=== PATIENT | male | born 1965 | race African-American/Black ===

== ENCOUNTER 2021-10-21 07:22 | Outpatient (REF) | payer OTHER, SELFPAY | END 2021-10-21 07:23 | disposition home or self-care (01) | LOC: HO.HOSX 07:22 | PROVIDERS: Visit Provider Physician Assistant | DX: Z13.89 Encounter for screening for other disorder (principal) ==

== ENCOUNTER → 2022-11-30 11:31 | Outpatient (BNVA) | payer MEDICAID, SELFPAY | PROVIDERS: PCP Nurse Practitioner Adult Health; Visit Provider Internal Medicine Gastroenterology | DX: K59.09 Other constipation (principal); K58.9 Irritable bowel syndrome, unspecified; R10.10 Upper abdominal pain, unspecified | CPT/HCPCS: 99202 ==

== ENCOUNTER 2023-03-09 08:00 | Day surgery (SDC) | payer OTHER, SELFPAY ==
[2022-12-12 12:53] VITALS: BMI 29.5
--- NOTE | 2023-03-08 08:51 | HO.ANESPROP2 ---
Documented by User: Kita Hernandez NP 03/08/23 08:51 HPI - Anesthesia Eval Consult details Narrative: 57yo M for Upper Endoscopy and Colonoscopy [facility] Active Problems Active Problems: All Active Problems (Updated 12/11/22 @ 15:51 by Demi Gonzalez, RN) Swelling of left hand (Acute ~03/27/21) Dermatitis (Acute) Upper abdominal pain (Acute) Chronic constipation (Acute) IBS (irritable bowel syndrome) (Acute) Past Medical History Medical History IBS (irritable bowel syndrome) Surgical History Surgical History H/O colonoscopy Social History Social History Patient Tobacco Use Status: Current everyday Tobacco user Substance Use Frequency: Daily Are you DNR?: No Advance Directives: No Advance Directives Information Provided: Yes Nutrition Risks: No Nutritional Risk Meds Allergies Allergy/AdvReac Type Severity Reaction Status Date / Time hydrocodone [From VICODIN] Allergy Intermediate NAUSEA Verified 12/11/22 15:51 Home Medications Medication Instructions Recorded Confirmed Last Taken Type acetaminophen 325 mg capsule 650 mg PO Q6H PRN Pain 11/30/22 12/12/22 Unknown History (Tylenol) ibuprofen 600 mg tablet 600 mg PO Q8H PRN Pain 11/30/22 12/12/22 Unknown History Exam Exam Date and Time: March 08, 2023 0851 Height,Weight and Vital Signs: Height 5 ft 6 in Weight 83.007 kg Assessment and Plan Assessment Anesthesia Assessment: Chart Reviewed Documented by User: Caitie Gusman MD 03/09/23 10:06 [facility] Past Medical History Medical History IBS (irritable bowel syndrome) Surgical History Surgical History H/O colonoscopy History of Problems with Anesthesia: No Social History Social History Patient Tobacco Use Status: Current everyday Tobacco user Substance Use Frequency: Daily Are you DNR?: No Advance Directives: No Advance Directives Information Provided: Yes Nutrition Risks: No Nutritional Risk Meds Allergies Allergy/AdvReac Type Severity Reaction Status Date / Time hydrocodone [From VICODIN] Allergy Intermediate NAUSEA Verified 12/11/22 15:51 Home Medications Medication Instructions Recorded Confirmed Last Taken Type acetaminophen 325 mg capsule 650 mg PO Q6H PRN Pain 11/30/22 12/12/22 Unknown History (Tylenol) ibuprofen 600 mg tablet 600 mg PO Q8H PRN Pain 11/30/22 12/12/22 Unknown History Exam Airway Mallampati Class: III TM Dist: >3cm Neck ROM: Full Loose/Missing/Broken Teeth: No Heart: RRR Lungs: CTA Assessment and Plan Assessment Anesthesia Assessment: Anesthesia Plan Discussed Final Anesthetic Review History of Problems with Anesthesia: No NPO: Yes ASA Class: II Final Preanesthetic Review: Meds/Allgs Chart Reviewed, Consent Obtained/Reviewed and Anes Risks/Benef Reviewed Patient Risk: Low Procedure Risk: Intermediate Anesthetic Plan Anesthetic Plan: MAC: Disposition: Standard PACU
--- NOTE | 2023-03-09 08:27 | MHC.SHP ---
Pre-Procedural Eval Section A Date of Service: 03/09/23 The patient is an INPATIENT: No The History & Physical has been completed within 30 days and I have reviewed it.: No Section B Chief Complaint: screening, abdominal pain,constipation, Relevant Family History (Specify if Yes): No Present Medications: see Short Stay Collaborative assessment Medical History: Significant History (Abdominal pain, constipation, IBS) History of Previous Operations: Relevant previous surgery/procedure and date(s) (History of colonoscopy) Allergies: Allergies Allergy/AdvReac Type Severity Reaction Status Date / Time hydrocodone [From VICODIN] Allergy Intermediate NAUSEA Verified 12/11/22 15:51 Review of Systems Sugical H&P ROS: Negative: Constitution, Cardiovascular, Respiratory and Gastrointestinal Exam Surgical H&P Exam: Normal: Heart, Normal: Lungs, Normal: Extremities and Normal: Abdomen Plan Diagnosis/Plan: Unchanged I have reviewed the history and physical and performed a pertinent physical examination on my patient. No changes have occurred unless specified. Time Spent With Patient Time: Total time managing care of this patient today ____ minutes.
[2023-03-09] MEDS: Lactated Ringers 1,000 ML 100 ML IVCONT (09:03)
[2023-03-09 09:11] VITALS: BP 132/92; PULSE 63; RESP 18; TEMP 37.2; O2SAT 99
--- NOTE | 2023-03-09 09:33 | P.OP_ITS ---
Operative Note Operative Note Date of Service: 03/09/23 Narrative: FLEXIBLE TRANSORAL UPPER GASTROINTESTINAL ENDOSCOPY WITH BIOPSIES AND COLONOSCOPY TILL CECUM WITH BIOPSIES AND SNARE POLYPECTOMY Pre-op diagnosis: Colon cancer screening, history of colon polyps, IBS with ab dominal pain, rectal bleeding Post-op diagnosis: Gastritis, duodenal nodule,?colon polyps, diverticulosis, hemorrhoids Endoscopist:? Chidi Jeffrey MD Anesthesia:?MAC UPPER ENDOSCOPY Consent: Indications for the procedure and potential complications of bleeding, perforation, reaction to medications and missed diagnosis were discussed with the patient and informed consent was obtained. Instrument: Olympus GIF H 190 mid size upper endoscope Monitoring: Vital signs and clinical assessment, continuous EKG monitoring, Pulse oximetry, Carbon Dioxide monitoring and blood pressure monitoring were done throughout the procedure. Procedure: The patient was placed in the left lateral decubitis position and pre-procedure medications were administered and a bite block was placed. The endoscope was inserted into the mouth and advanced under direct vision to the third part of duodenum. A careful inspection was made as the upper endoscope was withdrawn including a retroflexed examination of the proximal stomach; Findings and interventions are described below. Findings: Larynx: Normal Esophagus: GE junction at 40 cms. No esophagitis or Barrera's. Stomach: Moderate diffuse gastric erythema. Biopsies were obtained. Grade 2 flap valve on retroflexed examination of the cardia. Duodenum: A 10 - 12 mm benign appearing nodule in the apex of the bulb - biopsied. Normal descending duodenum - biopsied to check for celiac sprue Intervention: Biopsies as noted above COLONOSCOPY PROCEDURE NOTE Consent: Indications for the procedure and potential complications of bleeding, perforation, reaction to medications and missed diagnosis were discussed with the patient and informed consent was obtained. Instrument: Olympus CF H 190 L variable stiffness adult colonoscope Monitoring: Vital signs and clinical assessment, intermittent blood pressure monitoring, continuous EKG monitoring, Pulse oximetry and Carbon Dioxide monitoring were done throughout the procedure. Colon withdrawl time was 18 minutes. Procedure: The patient was placed in the left lateral decubitis position and pre-procedure medications were administered. After a digital rectal examination of the ano-rectum, the video colonoscope was inserted into the rectum and advanced through the colon to the cecum. The colonoscope was slowly withdrawn in a retrograde panoramic fashion and the colon mucosa was carefully examined including a retroflexed view of the rectum. Findings and interventions are described below. Procedure Difficulty: : Without difficulty Findings: Terminal Ileum: Not evaluated Cecum: An 8-9 mm sessile polyp at the lower lip of ICV - removed with a cold bx Ascending Colon: Normal Transverse Colon: A 10-12 mm sessile polyp at the hepatic flexure - removed with a cold snare. Residual polyp was removed with a cold biopsy. A 5-6 mm sessile polyp removed with a cold biopsy. Descending Colon: Normal Sigmoid Colon: 15-18 mm sessile polyp at 45 cm removed with hot snare. Moderate diverticulosis Rectum: Normal Ano-rectum: Large internal hemorrhoids Colon preparation: Good Impression and Post Procedure Diagnosis: Endoscopy Findings: STOMACH: Moderate diffuse gastric erythema. Biopsies were obtained. Grade 2 flap valve on retroflexed examination of the cardia. DUODENUM: A 10 - 12 mm benign appearing nodule in the apex of the bulb - biopsied. Normal descending duodenum - biopsied to check for celiac sprue Colonoscopy Findings: Two small and two medium sized polyps removed Random biopsies were obtained from right and left colon to check for microscopic colitis. Moderate diverticulosis seen in the sigmoid colon Large hemorrhoids on retroflexed exam. Plan: Await pathology results Patient has an appointment on 05/03/23 in the GI Clinic with Chidi Jeffrey M.D. Repeat Colonoscopy interval based on path results - in 3-5 years if polyps are adenomatous and 10 years if polyps are hyperplastic. Above findings were reviewed with the patient and Gastritis, colon polyps and diverticulosis handouts were given in the discharge area Pt reminded to have labs checked and schedule an Abd US
[2023-03-09 10:33] VITALS: BP 140/93; PULSE 66; RESP 18; TEMP 36.5; O2SAT 100
[2023-03-09 10:48] VITALS: BP 151/89; PULSE 66; RESP 18; TEMP 36.5; O2SAT 100
[2023-03-09 11:03] VITALS: BP 137/95; PULSE 69; RESP 16; TEMP 36.6; O2SAT 100
== END 2023-03-09 11:40 | disposition home or self-care (01) ==
PROVIDERS: PCP Nurse Practitioner Adult Health; Visit Provider Internal Medicine Gastroenterology
PROC: (CPT 45385; principal; 2023-03-09 09:20)
DX: Z12.11 Encounter for screening for malignant neoplasm of colon (principal); D12.3 Benign neoplasm of transverse colon; D12.6 Benign neoplasm of colon, unspecified; K57.30 Diverticulosis of large intestine without perforation or abscess without bleeding; K64.8 Other hemorrhoids; R10.10 Upper abdominal pain, unspecified; D13.2 Benign neoplasm of duodenum; K29.50 Unspecified chronic gastritis without bleeding; B96.81 Helicobacter pylori [H. pylori] as the cause of diseases classified elsewhere; K59.09 Other constipation; K58.1 Irritable bowel syndrome with constipation; Z88.5 Allergy status to narcotic agent
CPT/HCPCS: 45385; 45380; 43239; 88305; 88342; J2250

== ENCOUNTER → 2023-05-03 13:38 | Outpatient (BNVA) | payer OTHER, SELFPAY | PROVIDERS: PCP Nurse Practitioner Adult Health; Visit Provider Internal Medicine Gastroenterology ==

== ENCOUNTER 2023-10-18 13:14 | Outpatient (AMB) | payer OTHER, SELFPAY ==
--- NOTE | 2023-10-18 13:15 | A.OFFVIS_ITS ---
Intake Vital Signs 10/18/23 13:29 Height 5 ft 9 in Weight 168 lb BMI 24.8 BP 141/93 H Blood Pressure Location Lt brachial Position Sitting Pulse 91 Intake Visit Reasons: 6 mnth follow up Intake Note: Patient follow up Patient denies any GI issues. Drafter Heating And Ventilating Required: No Information Interpreted: clinical only Accompanied by: Family/Other Allergies hydrocodone [From VICODIN] Allergy (Intermediate, Verified 10/18/23 13:24) NAUSEA Medication List - Last Reconciled 10/18/23 by Chidi Jeffrey MD acetaminophen (Tylenol) 650 mg PO Q6H PRN ibuprofen 600 mg PO Q8H PRN omeprazole 20 mg PO DAILY 60 days psyllium husk 1 tbsp PO DAILY 30 days HPI 6 mnth follow up HPI Details GI clinic visit for this 57 YM for evaluation of abdominal pain, constipation, possible Lactose intolerance LABS IN [facility] : None in [facility] IMAGING STUDIES:? None in [facility] ENDOSCOPIC STUDIES: 03/2023 EGD AND COLONOSCOPY SHOWED: Endoscopy Findings: STOMACH:?Moderate diffuse gastric erythema. Biopsies were obtained. Grade 2 flap valve on retroflexed examination of the cardia. DUODENUM:?A 10 - 12 mm benign appearing nodule in the apex of the bulb - biopsied. Normal descending duodenum - biopsied to check for celiac sprue Colonoscopy Findings: Two small and two medium sized polyps removed Random biopsies were obtained from right and left colon to check for microscopic colitis. Moderate diverticulosis seen in the sigmoid colon Large hemorrhoids on retroflexed exam. Plan: Repeat Colonoscopy interval based on path results - in 3-5 years if polyps are adenomatous and 10 years if polyps are hyperplastic. 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 Did not have above problem when he was taking Omeprazole Had an accident with urinary incontinence and advised to see the urologist. Taking Meloxicam for shoulder pain and being scheduled for shoulder surgery for a torn rotator cuff in enext few months Wakes up with coughing and has concerns regarding nocturnal GERD symptoms PAST VISTS: Finished antibiotics for H Pylori by April 05, 2023. Pt thinks he may have acquired H Pylori infection from drinking contaminated water while he was in the . 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 He is accompanied by Lakisha (HAND BASEBALL SEWER at [employer] [facility] [employer] [facility] [place]) Pt has intermittent constipation, abdominal pain, cramping and urgency x past several yrs Has 2 Bms a day associated with cramping. Stool looks normal - sometimes contains partly digested stool. Has noted upper abdominal pain (felt like a sock full of warm jelly) - a month ago Pain was intermittent, associated with eating and lasted a few days. Has been eating less and has been very selective and avoiding fried foods. Red sauce with tomato paste and pizza can trigger his symptoms Taking tylenol and Ibuprofen for hip pain. Ibuprofen was stopped 3 weeks ago Has reflux, heartburn and upper abdominal pain. He had an episode of BRB from the rectum bleeding 6 months ago. Started OTC Omeprazole 20 mg at bedtime x 3 weeks which has been helpful Takes Lactaid with milk products. Wt loss of 17 lbs over the past 6 months since patient has been eating last. Patient denies symptoms of dysphagia, nausea, vomiting.? He had an episode of rectal bleeding 6 months ago. Patient denies major cardiac or pulmonary problems, loud snoring or sleep apnea Had a chemical stress test at [facility] - negative per patient. Denies problems with anesthesia in the past. Denies being on chronic anticoagulation. Patient denies known family history of colon polyps, colon cancer or other GI malignancies. PAST GI HISTORY BY REVIEW OF MEDICAL RECORDS: 09/2019 pt had a colonoscopy by Dr Mccormack s: In the cecum, there was a poorly formed AVM, nonbleeding. Appendiceal orifice was seen. Ileocecal valve was seen. Prep was excellent. Slow rotational views on withdrawing the scope. Diminutive ascending colon polyp was removed excisionally. Slightly more protuberant polyp was removed excisionally in the hepatic flexure and at 25 cm. There was again a diminutive polyp that was removed excisionally with no concerns. Further withdrawal of the scope. Anorectal verge was clear. All 3 polyps were tubular adenomas on biopsy [facility] Medical History (Updated 05/03/23 @ 14:43 by Chidi Jeffrey MD) IBS (irritable bowel syndrome) Surgical History History of esophagogastroduodenoscopy (EGD) H/O colonoscopy Social History Patient Tobacco Use Status: Current everyday Tobacco user Review of Systems Const All systems reviewed & are unremarkable except as noted in HPI and below Physical Exam Vital Signs: Last Vital Signs Pulse 91 10/18/23 13:29 BP 141/93 H 10/18/23 13:29 BMI result Body Mass Index 24.8 Const General: healthy appearing and no acute distress Nutritional Appearance: average body habitus Orientation/consciousness: patient oriented x3 Limitations: no limitations HEENT Head: Yes normal to inspection Ears: hearing grossly normal bilaterally Eyes Sclerae: sclerae normal Pupils: Equal, round and reactive pupils present Neck Neck: Yes normal visual inspection Chest Chest palpation & inspection: normal inspection of the chest Resp Effort & Inspection: normal respiratory effort Auscultation: clear to auscultation bilaterally Cardio Palpation: normal PMI Rate: regular rate Rhythm: regular rhythm Heart sounds: S1 normal heart sound present, S2 normal heart sound present and no murmurs GI Palpation (GI): Soft to palpation, nontender and No hepatosplenomegaly present Auscultation: normal bowel sounds Rectal Exam - Male: Yes deferred Skin General skin exam: no rashes or lesions noted Neuro General: patient oriented x3, gait normal and moves all extremities Cranial nerves: Yes Equal, round and reactive pupils present Psych Appearance: grossly normal Mental Status: mental status grossly normal Assessment & Plan Assessment & Plan (1) History of colon polyps: Comment: 03/09/23 Two medium sized adenomatous polyps were removed. Repeat colonoscopy was advised in 3 years (due 03/2026) Code(s): Z86.010 - Personal history of colonic polyps (2) Helicobacter pylori gastritis: Comment: 03/09/23 Diagnosed on gastric bx and treated with Omeprazole, amoxicillin and clarithromycin Code(s): K29.70 - Gastritis, unspecified, without bleeding; B96.81 - Helicobacter pylori [H. pylori] as the cause of diseases classified elsewhere (3) Chronic constipation: Code(s): K59.09 - Other constipation (4) Upper abdominal pain: Code(s): R10.10 - Upper abdominal pain, unspecified (5) IBS (irritable bowel syndrome): Code(s): K58.9 - Irritable bowel syndrome without diarrhea Plan 57 YM with intermittent constipation, abdominal pain, cramping and urgency x past several yrs Has 2 BMs a day associated with cramping and urgency Has noted upper abdominal pain (felt like a sock full of warm jelly) - a month ago 09/2019 three adenomatous polyps were removed during colonoscopy. Fu colonoscopy was due in Sep, 2022 Patient's symptoms are suggestive of IBS.? Need to rule out IBD/lactose intolerant Pt avised to take a fibre supplement once a day and start a FODMAP diet. Handouts on IBS and FODMAP diet were given to the patient. 03/2023 EGD and Colon were performed and findings as noted above. 05/03/23 Pt notes 80% improvement in symptoms after being treated for H Pylori infection. He will have labs and abd US done after he sees his PCP at on 05/22/23 10/18/23 H Pylori breath test - negative Resume Omprazole 20 mg daily for GERD and since he is taking Meloxicam Obtain copy of lab results from Schedule an Abd US if he has recurrent upper abdominal pain Clinic FU in 4 months Orders: Orders H Pylori Breath Test 10/18/23 Medications: Refilled omeprazole 20 mg PO DAILY 60 days 60 caps 2RF Coding Level of Care Code Est Pt Level 4 (14618) Diagnoses History of colon polyps Z86.010 Helicobacter pylori gastritis K29.70; B96.81 Chronic constipation K59.09 Upper abdominal pain R10.10 IBS (irritable bowel syndrome) K58.9 Time Spent (min) 25
[2023-10-18 13:29] VITALS: BP 141/93; PULSE 91; BMI 24.8
== END 2023-10-18 14:20 | disposition home or self-care (01) ==
PROVIDERS: PCP Nurse Practitioner Adult Health; Visit Provider Internal Medicine Gastroenterology
DX: K29.70 Gastritis, unspecified, without bleeding (principal); B96.81 Helicobacter pylori [H. pylori] as the cause of diseases classified elsewhere; Z86.010 Personal history of colon polyps; K58.1 Irritable bowel syndrome with constipation
CPT/HCPCS: 99213

== ENCOUNTER → 2023-10-18 13:14 | Outpatient (BNVA) | payer OTHER, SELFPAY | PROVIDERS: PCP Nurse Practitioner Adult Health; Visit Provider Internal Medicine Gastroenterology ==

== ENCOUNTER 2023-10-18 19:29 | Outpatient (REF) | payer OTHER, SELFPAY ==
[2023-10-21 15:06] LABS: H Pylori Breath Test Negative (Negative)
== END 2023-10-18 19:30 | disposition home or self-care (01) ==
LOC: HO.LNP 19:29
PROVIDERS: Visit Provider Internal Medicine Gastroenterology
DX: Z11.0 Encounter for screening for intestinal infectious diseases (principal)
CPT/HCPCS: 83013

== ENCOUNTER 2024-01-24 12:31 | Outpatient (AMB) | payer OTHER, SELFPAY ==
--- NOTE | 2024-01-24 12:35 | A.OFFVIS_ITS ---
Intake Vital Signs 01/24/24 12:39 Height 5 ft 9 in Weight 180 lb 12.465 oz BMI 26.7 BP 138/115 H Blood Pressure Location Lt brachial Position Sitting Intake Visit Reasons: sick visit Intake Note: Rodo presents in the office as a follow up. CC: He has been watching what he eats and he may not need to take the fiber. He is weight conscious and feels like he is over eating. Stools have been okay but sometimes his stools are sludgey. He does not have pains in his stomach anymore - no more cramping. Allergies hydrocodone [From VICODIN] Allergy (Intermediate, Verified 01/24/24 12:40) NAUSEA meloxicam Adverse Reaction (Mild, Verified 01/24/24 12:41) bad dreams Medication List - Last Reconciled 01/24/24 by Chidi Jeffrey MD acetaminophen (Tylenol) 650 mg PO Q6H PRN hydroxyzine HCl mg PO ibuprofen 600 mg PO Q8H PRN omeprazole 20 mg PO DAILY 90 days psyllium husk 1 tbsp PO DAILY 30 days HPI sick visit HPI Details GI clinic visit for this 58 for FU of abdominal pain, constipation, possible Lactose intolerance. Urgent FU scheduled today after a call from the patient: PT's significant other Lakisha called and stated that Rodo is having some difficulties she thinks he may have an internal hemorrhoid or possibly a polyp. She is asking if he can see you sooner than February 20, [facility] None in [facility] ST[email or web address] STUDIES: 03/2023 EGD AND COLONOSCOPY SHOWED: Endoscopy Findings: STOMACH:?Moderate diffuse gastric erythema. Biopsies were obtained. Grade 2 flap valve on retroflexed examination of the cardia. DUODENUM:?A 10 - 12 mm benign appearing nodule in the apex of the bulb - biopsied. Normal descending duodenum - biopsied to check for celiac sprue Colonoscopy Findings: Two small and two medium sized polyps removed Random biopsies were obtained from right and left colon to check for microscopic colitis. Moderate diverticulosis seen in the sigmoid colon Large hemorrhoids on retroflexed exam. Plan: Repeat Colonoscopy interval based on path results - in 3-5 years if polyps are adenomatous and 10 years if polyps are hyperplastic. TODAY'S VISIT: PT's significant other Lakisha called and stated that Rodo is having some difficulties she thinks he may have an internal hemorrhoid or possibly a polyp. CC: He has been watching what he eats and he may not need to take the fiber. He is weight conscious and feels like he is over eating. Stools have been okay but sometimes his stools are sludgey. He does not have pains in his stomach anymore - no more cramping. Pt is accompanied by his GF, Lakisha (HOSPICE PHYSICIAN at [facility] [place] Eating a lot of vegetables. I have been eating too much to gain wt to 190 lbs Has to wipe a lot to clean himself Took a shower and felt a ? marble in the anal area. [place] it was preventing the stool from passing. Symptoms have been going on for the past 2-3 months Unable to leave the house since he has to use the bathroom several times. Stools are like sludge/milk shake. Lakisha changed his diet back to a low fat diet with lactaid milk and symptoms are slowly improving. Abd pain resolved after he resumed taking Omeprazole. PAST VISTS: I have been feeling so good, I realize how bad my stomach was in the past Intermittent episodes of rectal discharge and has to wipe himself - 2-3 times a week. Did not have above problem when he was taking Omeprazole Had an accident with urinary incontinence and advised to see the urologist. Taking Meloxicam for shoulder pain and being scheduled for shoulder surgery for a torn rotator cuff in the next few months Wakes up with coughing and has concerns regarding nocturnal GERD symptoms Finished antibiotics for H Pylori by April 05, 2023. Pt thinks he may have acquired H Pylori infection from drinking contaminated water while he was in the . 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 He is accompanied by Lakisha (HOSPICE PHYSICIAN at [facility] [place] Pt has intermittent constipation, abdominal pain, cramping and urgency x past several yrs Has 2 Bms a day associated with cramping. Stool looks normal - sometimes contains partly digested stool. Has noted upper abdominal pain (felt like a sock full of warm jelly) - a month ago Pain was intermittent, associated with eating and lasted a few days. Has been eating less and has been very selective and avoiding fried foods. Red sauce with tomato paste and pizza can trigger his symptoms Taking tylenol and Ibuprofen for hip pain. Ibuprofen was stopped 3 weeks ago Has reflux, heartburn and upper abdominal pain. He had an episode of BRB from the rectum bleeding 6 months ago. Started OTC Omeprazole 20 mg at bedtime x 3 weeks which has been helpful Takes Lactaid with milk products. Wt loss of 17 lbs over the past 6 months since patient has been eating last. Patient denies symptoms of dysphagia, nausea, vomiting.? He had an episode of rectal bleeding 6 months ago. Patient denies major cardiac or pulmonary problems, loud snoring or sleep apnea Had a chemical stress test at [facility] - negative per patient. Denies problems with anesthesia in the past. Denies being on chronic anticoagulation. Patient denies known family history of colon polyps, colon cancer or other GI malignancies. 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 Appendiceal orifice was seen. Ileocecal valve was seen. Prep was excellent. Slow rotational views on withdrawing the scope. Diminutive ascending colon polyp was removed excisionally. Slightly more protuberant polyp was removed excisionally in the hepatic flexure and at 25 cm. There was again a diminutive polyp that was removed excisionally with no concerns. Further withdrawal of the scope. Anorectal verge was clear. All 3 polyps were tubular adenomas on biopsy [facility] Medical History (Updated 05/03/23 @ 14:43 by Chidi Jeffrey MD) IBS (irritable bowel syndrome) Surgical History History of esophagogastroduodenoscopy (EGD) H/O colonoscopy Social History Patient Tobacco Use Status: Current everyday Tobacco user Review of Systems Const All systems reviewed & are unremarkable except as noted in HPI and below Physical Exam Vital Signs: Last Vital Signs BP 138/115 H 01/24/24 12:39 BMI result Body Mass Index 26.7 Const General: healthy appearing and no acute distress Nutritional Appearance: overweight Orientation/consciousness: patient oriented x3 Limitations: no limitations HEENT Head: Yes normal to inspection Ears: hearing grossly normal bilaterally Eyes Sclerae: sclerae normal Pupils: Equal, round and reactive pupils present Neck Neck: Yes normal visual inspection Chest Chest palpation & inspection: normal inspection of the chest Resp Effort & Inspection: normal respiratory effort Auscultation: clear to auscultation bilaterally Cardio Palpation: normal PMI Rate: regular rate Rhythm: regular rhythm Heart sounds: S1 normal heart sound present, S2 normal heart sound present and no murmurs GI Palpation (GI): Soft to palpation, nontender and No hepatosplenomegaly present Auscultation: normal bowel sounds Rectal Exam - Male: Yes visual inspection normal, Yes normal sphincter tone, No Anal fissure(s) present, No hemorrhoids (no external hemorrhoids seen), No mass and Yes other Skin General skin exam: no rashes or lesions noted Neuro General: patient oriented x3, gait normal and moves all extremities Cranial nerves: Yes Equal, round and reactive pupils present Psych Appearance: grossly normal Mental Status: mental status grossly normal Assessment & Plan Assessment & Plan (1) History of colon polyps: Comment: 03/09/23 Two medium sized adenomatous polyps were removed. Repeat colonoscopy was advised in 3 years (due 03/2026) Code(s): Z86.010 - Personal history of colonic polyps (2) Helicobacter pylori gastritis: Comment: 03/09/23 Diagnosed on gastric bx and treated with Omeprazole, amoxicillin and clarithromycin Code(s): K29.70 - Gastritis, unspecified, without bleeding; B96.81 - Helicobacter pylori [H. pylori] as the cause of diseases classified elsewhere (3) Upper abdominal pain: Code(s): R10.10 - Upper abdominal pain, unspecified (4) Chronic constipation: Code(s): K59.09 - Other constipation (5) IBS (irritable bowel syndrome): Code(s): K58.9 - Irritable bowel syndrome without diarrhea Plan 58 YM with intermittent constipation, abdominal pain, cramping and urgency x past several yrs Has 2 BMs a day associated with cramping and urgency Has noted upper abdominal pain (felt like a sock full of warm jelly) - a month ago 09/2019 three adenomatous polyps were removed during colonoscopy. Fu colonoscopy was due in Sep, 2022 Patient's symptoms are suggestive of IBS.? Need to rule out IBD/lactose intolerant Pt avised to take a fibre supplement once a day and start a FODMAP diet. Handouts on IBS and FODMAP diet were given to the patient. 03/2023 EGD and Colon were performed and findings as noted above. 05/03/23 Pt notes 80% improvement in symptoms after being treated for H Pylori infection. He will have labs and abd US done after he sees his PCP at on 05/22/23 10/18/23 H Pylori breath test - negative Resume Omprazole 20 mg daily for GERD and since he is taking Meloxicam Obtain copy of lab results from CD Schedule an Abd US if he has recurrent upper abdominal pain 01/24/24 PT's significant other Lakisha called and stated that Rodo is having some difficulties she thinks he may have an internal hemorrhoid or possibly a polyp. I have been eating too much to gain wt to 190 lbs Stool are greasy and has to wipe a lot to clean himself Took a shower and felt a ? marble in the anal area - likely thrombosed internal hemorrhoid - rectal exam today did not reveal any masses or palpable hemorrhoids. Abd pain resolved after he resumed taking Omeprazole. Change in BMs likely related to a change in diet with greasy and fatty foods. Symptoms are gradually improving after he changed his diet back to a low fat diet with lactaid milk FU in 4 weeks - OK to move FU appt to 6 months if pt symptoms resolves after he resumes his usual diet. Medications: New hydrocortisone 2.5% 1 appl CO BEDTIME 2 weeks PRN 30 grams 1RF hemorrhoids Changed From omeprazole 20 mg PO DAILY 60 days 60 caps 2RF R10.10 - Upper abdominal pain, unspecified To omeprazole 20 mg PO DAILY 90 days 90 caps 1RF R10.10 - Upper abdominal pain, unspecified Refilled omeprazole 20 mg PO DAILY 90 days 90 caps 1RF R10.10 - Upper abdominal pain, unspecified Coding Level of Care Code Est Pt Level 4 (43691) Diagnoses History of colon polyps Z86.010 Helicobacter pylori gastritis K29.70; B96.81 Upper abdominal pain R10.10 Chronic constipation K59.09 IBS (irritable bowel syndrome) K58.9 Time Spent (min) 25
[2024-01-24 12:39] VITALS: BP 138/115; BMI 26.7
== END 2024-01-24 13:27 | disposition home or self-care (01) ==
PROVIDERS: PCP Nurse Practitioner Adult Health; Visit Provider Internal Medicine Gastroenterology
DX: K58.1 Irritable bowel syndrome with constipation (principal); K29.70 Gastritis, unspecified, without bleeding; Z86.010 Personal history of colon polyps; R10.10 Upper abdominal pain, unspecified
CPT/HCPCS: 99214

== ENCOUNTER → 2024-01-24 12:31 | Outpatient (BNVA) | payer OTHER, SELFPAY | PROVIDERS: PCP Nurse Practitioner Adult Health; Visit Provider Internal Medicine Gastroenterology ==